=== PATIENT | female | born 1985 | race Caucasian/White ===

== ENCOUNTER 2017-11-17 15:52 | Emergency (ER) | payer OTHER ==
[~2017-11-17] VITALS: Ht 160 cm; Wt 54.0 kg
[2017-11-17 16:06] VITALS: BP 118/73; PULSE 94; RESP 18; TEMP 98.2; O2SAT 98
[2017-11-17] MEDS ORDERED: SODIUM CHLORID 0.9% 500 ML INJ 500 ML IV ONE (18:15)
[2017-11-17] MEDS ORDERED: SODIUM CHLORIDE 0.9% FLUSH 10 ML FLUSH IVF PRN ×2 (18:15)
[2017-11-17 18:34] LABS: AUTOMATED NEUTROPHIL # 8.6 TH/MM3 (1.8-7.7); BASOPHIL % 0.3 % (0.0-2.0); EOSINOPHIL # 0.3 TH/MM3 (0-0.4); EOSINOPHIL % 2.1 % (0.0-4.0); HEMATOCRIT 32.5 % (35.0-46.0); LYMPH % 21.7 % (9.0-44.0); LYMPHOCYTE # 2.8 TH/MM3 (1.0-4.8); MEAN CELL VOLUME 82.6 FL (80.0-100.0); MEAN CORPUSCULAR HEMOGLOBIN 27.9 PG (27.0-34.0); MEAN CORPUSCULAR HGB CONC 33.8 % (32.0-36.0); MONO % 8.1 % (0.0-8.0); NEUT % 67.8 % (16.0-70.0); PLATELET COUNT 296 TH/MM3 (150-450); RED BLOOD COUNT 3.93 MIL/MM3 (4.00-5.30); RED CELL DISTRIBUTION WIDTH 14.3 % (11.6-17.2); WHITE BLOOD COUNT 12.7 TH/MM3 (4.0-11.0)
[2017-11-17 18:41] VITALS: O2SAT 99
[2017-11-17 18:48] LABS: BICARBONATE 24.3 MEQ/L (21.0-32.0); CALCIUM 8.3 MG/DL (8.5-10.1); CREATININE 0.49 MG/DL (0.50-1.00)
[2017-11-17 18:52] LABS: INTERNATIONAL NORMALIZED RATIO 0.9 RATIO; PROTHROMBIN TIME - PATIENT 9.4 SEC (9.8-11.6)
--- NOTE | 2017-11-17 18:54 | PD ---
HPI Chief Complaint: Musculoskeletal Complaint Time Seen by Provider: 18:05 Travel History International Travel<30 days: No Contact w/Intl Traveler<30days: No Traveled to known affect area: No History of Present Illness HPI 32-year-old female, reportedly 22 weeks , presents emergency department with sudden onset left lower leg swelling and pain since lunchtime this morning. Patient states it just started while she was eating lunch. Patient states the pain has worsened and extended into the left thigh. Patient does not have a local [employer] as she just moved here from [place]. Patient states she called her [employer] in [place] who recommended she come in for evaluation for possible DVT. Patient denies cough, shortness of breath, abdominal pain, or vaginal symptoms. Patient states he feels movement. Pain is 8 out of 10 , and worse with trying to ambulate. She is allergic to amide type anesthetics. PFSH Past Medical History Medical History: Denies Significant Hx Tetanus Vaccination: Unknown Influenza Vaccination: No ?: Social History Alcohol Use: No Tobacco Use: No Substance Use: No Allergies-Medications (Allergen,Severity, Reaction): Coded Allergies: Anesthetics - Amide Type (Verified Allergy, Severe, Seizures, 11/17/17) Reported Meds & Prescriptions Reported Meds & Active Scripts Active No Active Prescriptions or Reported Medications Review of Systems Except as stated in HPI: all other systems reviewed are Neg General / Constitutional: No: Fever Eyes: No: Visual changes HENT: No: Headaches Cardiovascular: No: Chest Pain or Discomfort Respiratory: No: Shortness of Breath Gastrointestinal: No: Abdominal Pain Genitourinary: No: Dysuria Musculoskeletal: Positive: Myalgias, Cramping (See history of present illness) , Edema, No: Pain Skin: No Rash Neurologic: No: Weakness Psychiatric: No: Depression Endocrine: No: Polydipsia Hematologic/Lymphatic: No: Easy Bruising Physical Exam Narrative GENERAL: Patient appears in mild distress per SKIN: Warm and dry. Normal color. Normal turgor. No rash. No ecchymosis. No signs of trauma HEAD: Atraumatic. Normocephalic. EYES: Pupils equal and round. No scleral icterus. No injection or drainage. ENT: No nasal bleeding or discharge. Mucous membranes pink and moist. Pharynx is clear. NECK: Trachea midline. Supple nontender CARDIOVASCULAR: Regular rate and rhythm. RESPIRATORY: No accessory muscle use. Clear to auscultation. Breath sounds equal bilaterally. GASTROINTESTINAL: Abdomen soft, non-tender, nondistended. Hepatic and splenic margins not palpable. MUSCULOSKELETAL: Extremities without clubbing, cyanosis, or edema. No obvious deformities. Patient has positive Homans sign on the left. Left leg does appear slightly swollen. Neurovascular exam is normal. Capillary refill is brisk. NEUROLOGICAL: Awake and alert. No obvious cranial nerve deficits. Motor grossly within normal limits. Five out of 5 muscle strength in the arms and legs. Normal speech. PSYCHIATRIC: Appropriate mood and affect; insight and judgment normal. Data Data Last Documented VS Vital Signs Date Time Temp Pulse Resp B/P (MAP) Pulse Ox O2 Delivery O2 Flow Rate FiO2 11/17/17 18:41 99 Room Air 11/17/17 16:06 98.2 94 18 118/73 (88) Orders Orders Basic Metabolic Panel (Bmp) (11/17/17 18:08) Complete Blood Count With Diff (11/17/17 18:08) Prothrombin Time / Inr (Pt) (11/17/17 18:08) Act Partial Throm Time (Ptt) (11/17/17 18:08) Ecg Monitoring (11/17/17 18:08) Bilateral Bp Monitoring (11/17/17 18:08) Iv Access Insert/Monitor (11/17/17 18:08) Oximetry (11/17/17 18:08) Oxygen Administration (11/17/17 18:08) Sodium Chloride 0.9% Flush (Ns Flush) (11/17/17 18:15) Sodium Chlorid 0.9% 500 Ml Inj (Ns 500 M (11/17/17 18:15) Heart Tones (11/17/17 18:08) Sodium Chloride 0.9% Flush (Ns Flush) (11/17/17 18:15) Us Leg Venous Doppler (11/17/17 18:08) Labs Laboratory Tests Test 11/17/17 18:25 White Blood Count 12.7 TH/MM3 Red Blood Count 3.93 MIL/MM3 Hemoglobin 11.0 GM/DL Hematocrit 32.5 % Mean Corpuscular Volume 82.6 FL Mean Corpuscular Hemoglobin 27.9 PG Mean Corpuscular Hemoglobin Concent 33.8 % Red Cell Distribution Width 14.3 % Platelet Count 296 TH/MM3 Mean Platelet Volume 8.0 FL Neutrophils (%) (Auto) 67.8 % Lymphocytes (%) (Auto) 21.7 % Monocytes (%) (Auto) 8.1 % Eosinophils (%) (Auto) 2.1 % Basophils (%) (Auto) 0.3 % Neutrophils # (Auto) 8.6 TH/MM3 Lymphocytes # (Auto) 2.8 TH/MM3 Monocytes # (Auto) 1.0 TH/MM3 Eosinophils # (Auto) 0.3 TH/MM3 Basophils # (Auto) 0.0 TH/MM3 CBC Comment AUTO DIFF Prothrombin Time 9.4 SEC Prothromb Time International Ratio 0.9 RATIO Activated Partial Thromboplast Time 25.0 SEC Blood Urea Nitrogen 4 MG/DL Creatinine 0.49 MG/DL Random Glucose 86 MG/DL Calcium Level 8.3 MG/DL Sodium Level 140 MEQ/L Potassium Level 3.6 MEQ/L Chloride Level 107 MEQ/L Carbon Dioxide Level 24.3 MEQ/L Anion Gap 9 MEQ/L Estimat Glomerular Filtration Rate 145 ML/MIN MDM Medical Decision Making Medical Screen Exam Complete: Yes Emergency Medical Condition: Yes Differential Diagnosis Left lower leg pain. Left lower leg edema. Possible DVT and 22-week patient. Narrative Course Labs ordered including CBC, CMP, coagulation studies. IV access is obtained. Patient is given 500 mL's normal saline bolus. heart rate to be evaluated. Ultrasound of the left lower leg is ordered. CBC is unremarkable except for slight leukocytosis of 12.7. Coagulation studies shows a PT of 9.4 with an INR of 0.9 Chemistries unremarkable. 1900 hrs., ultrasound is pending. Care of the patient is assumed by Bryan Rodriguez PA-C. Final disposition will be determined by him. Scripts No Active Prescriptions or Reported Meds Condition: Stable Victor Hugo Xiao Nov 17, 2017 18:54
[2017-11-17 19:25] LABS: BANDS 6 % (0-6); LYMPHOCYTES 22 % (9-44); METAMYELOCYTES 1 % (0-1); MONOCYTES 4 % (0-8); MYELOCYTES 2 % (0-0); NEUTROPHIL # MANUAL DIFF 9.3 TH/MM3 (1.8-7.7); POLYS (SEG NEUTROPHILS) 64 % (16-70)
--- NOTE | 2017-11-17 19:52 | RADRPT ---
EXAM DATE/TIME: 11/17/2017 19:13 [facility] COMPARISON: No previous studies available for comparison. INDICATIONS : Left leg pain and swelling. MEDICAL HISTORY : None. SURGICAL HISTORY : None. ENCOUNTER: Initial ACUITY: 1 day PAIN SCORE: 2/10 LOCATION: Left leg. TECHNIQUE: Venous ultrasound of the leg was performed from the inguinal ligament to the proximal calf. Real-mi e, color Doppler and spectral tracing, compression and augmentation techniques were used. FINDINGS: There is normal compressibility of the deep venous system from the inguinal region to the proximal ca lf. No echogenic clot is seen in the lumen of the common femoral, femoral, popliteal, and posterior tibial veins. There is a normal response of the venous system to proximal and distal augmentation an d respiration. CONCLUSION: No evidence of deep venous thrombosis within the left lower extremity. Reinier Adams MD on November 17, 2017 at 19:49 Board Certified Radiologist. This report was verified electronically.
[2017-11-17] MEDS ORDERED: NITROFURANTOIN MONOHYD MACROCR 100 MG CAP PO SCH (20:30)
--- NOTE | 2017-11-17 21:49 | RADRPT ---
EXAM DATE/TIME: 11/17/2017 20:53 [facility] COMPARISON: No previous studies available for comparison. INDICATIONS : Numbness in right leg since this morning. Patient is 22 weeks . MEDICAL HISTORY : . SURGICAL HISTORY : None. ENCOUNTER: Initial ACUITY: 1 day PAIN SCORE: 0/10 LOCATION: Back. TECHNIQUE: Multiplanar multisequence MRI of the lumbar spine was performed without contrast. FINDINGS: The most caudal appearing lumbar vertebra is numbered as L5. Interuterine is noted. VERTEBRAE: Homogeneous signal. Normal alignment. CONUS: Normal level and configuration. T12-L1: The thecal sac has a normal diameter. No evidence of disc bulge or protrusion. The neural foramina are patent bilaterally. L1-L2: The thecal sac has a normal diameter. No evidence of disc bulge or protrusion. The neural foramina are patent bilaterally. L2-L3: The thecal sac has a normal diameter. No evidence of disc bulge or protrusion. The neural foramina are patent bilaterally. L3-L4: The thecal sac has a normal diameter. No evidence of disc bulge or protrusion. The neural foramina are patent bilaterally. L4-L5: The thecal sac has a normal diameter. No evidence of disc bulge or protrusion. The neural foramina are patent bilaterally. L5-S1: There is loss of disc height and signal at L5-S1 consistent with degenerative disc disease. Annular t ear is noted at this level. Minimal bilateral neuroforaminal narrowing is noted secondary to disc bul ge and mild facet joint hypertrophy. Tiny central disc bulge is noted at this level. No spinal stenos is is noted. CONCLUSION: Tiny central disc bulge at L5-S1 resulting in no spinal stenosis. Degenerative disc d isease L5-S1 with annular tear. Minimal bilateral foraminal narrowing at L5-S1. Interuterine pregnanc y. Reinier Adams MD on November 17, 2017 at 21:43 Board Certified Radiologist. This report was verified electronically.
--- NOTE | 2017-11-17 22:11 | PD ---
Physical Exam Narrative 32-year-old female was seen by my physician assistant community director to me. Patient has symptoms typical of neuritis left leg. Data Data Last Documented VS Vital Signs Date Time Temp Pulse Resp B/P (MAP) Pulse Ox O2 Delivery O2 Flow Rate FiO2 11/17/17 18:41 99 Room Air 11/17/17 16:06 98.2 94 18 118/73 (88) Orders Orders Basic Metabolic Panel (Bmp) (11/17/17 18:08) Complete Blood Count With Diff (11/17/17 18:08) Prothrombin Time / Inr (Pt) (11/17/17 18:08) Act Partial Throm Time (Ptt) (11/17/17 18:08) Ecg Monitoring (11/17/17 18:08) Bilateral Bp Monitoring (11/17/17 18:08) Iv Access Insert/Monitor (11/17/17 18:08) Oximetry (11/17/17 18:08) Oxygen Administration (11/17/17 18:08) Sodium Chloride 0.9% Flush (Ns Flush) (11/17/17 18:15) Sodium Chlorid 0.9% 500 Ml Inj (Ns 500 M (11/17/17 18:15) Heart Tones (11/17/17 18:08) Sodium Chloride 0.9% Flush (Ns Flush) (11/17/17 18:15) Us Leg Venous Doppler (11/17/17 18:08) Mri L Spine W/O Contrast (11/17/17 ) Nitrofurantoin Monohyd Macrocr (Macrobid (11/17/17 20:30) Consult Neurology (11/17/17 ) (Hub Use Only)Inp Phy Cons/Ref (11/18/17 ) Labs Laboratory Tests Test 11/17/17 18:25 White Blood Count 12.7 TH/MM3 Red Blood Count 3.93 MIL/MM3 Hemoglobin 11.0 GM/DL Hematocrit 32.5 % Mean Corpuscular Volume 82.6 FL Mean Corpuscular Hemoglobin 27.9 PG Mean Corpuscular Hemoglobin Concent 33.8 % Red Cell Distribution Width 14.3 % Platelet Count 296 TH/MM3 Mean Platelet Volume 8.0 FL Neutrophils (%) (Auto) 67.8 % Lymphocytes (%) (Auto) 21.7 % Monocytes (%) (Auto) 8.1 % Eosinophils (%) (Auto) 2.1 % Basophils (%) (Auto) 0.3 % Neutrophils # (Auto) 8.6 TH/MM3 Lymphocytes # (Auto) 2.8 TH/MM3 Monocytes # (Auto) 1.0 TH/MM3 Eosinophils # (Auto) 0.3 TH/MM3 Basophils # (Auto) 0.0 TH/MM3 CBC Comment AUTO DIFF Differential Total Cells Counted 100 Neutrophils % (Manual) 64 % Band Neutrophils % 6 % Lymphocytes % 22 % Monocytes % 4 % Eosinophils % 1 % Neutrophils # (Manual) 9.3 TH/MM3 Metamyelocytes 1 % Myelocytes 2 % Differential Comment FINAL DIFF MANUAL Platelet Estimate NORMAL Platelet Morphology Comment NORMAL Red Cell Morphology Comment NORMAL Prothrombin Time 9.4 SEC Prothromb Time International Ratio 0.9 RATIO Activated Partial Thromboplast Time 25.0 SEC Blood Urea Nitrogen 4 MG/DL Creatinine 0.49 MG/DL Random Glucose 86 MG/DL Calcium Level 8.3 MG/DL Sodium Level 140 MEQ/L Potassium Level 3.6 MEQ/L Chloride Level 107 MEQ/L Carbon Dioxide Level 24.3 MEQ/L Anion Gap 9 MEQ/L Estimat Glomerular Filtration Rate 145 ML/MIN MDM Supervised Visit with LOIDA: Yes Narrative Course 32-year-old female, 22 weeks , with diagnosis of left leg neuritis. I spoke with Dr. Salazar, neurologist. Advise MRI of the lumbar spine and observation overnight and he was see patient in a.m. I spoke with the ED OB, who advised me to call medical service for admission. I spoke with Dr. Jama who stated that he would not admit any female above 16 weeks . I spoke with ED OB again and was advised that medical service should admit the patient. I spoke to Dr. Jama again and he advised me that he would not admit the patient to the medical service because patient is above 16 week . Patient will be observed in the ED till morning. Diagnosis Primary Impression: Neuritis of left lower extremity Scripts No Active Prescriptions or Reported Meds Condition: Stable Mike Ward MD Nov 17, 2017 22:11
[2017-11-18 07:29] VITALS: BP 105/65; PULSE 93; RESP 18; TEMP 98.6; O2SAT 98
--- NOTE | 2017-11-18 10:09 | PD ---
Physical Exam Date Seen by Provider: Nov 18, 2017 Time Seen by Provider: 10:06 Narrative 32-year-old female with 22 week , previously seen by myself and Dr. Ward last evening, is still here at 10:00 in the morning, awaiting neurology consult. MRI was performed, and reviewed. Patient was discussed with Dr. Elizondo, and neurologically the patient appears intact and is limited as terms of treatment due to her current . She felt the patient would benefit from Tylenol and physical therapy. Data Data Last Documented VS Vital Signs Date Time Temp Pulse Resp B/P (MAP) Pulse Ox O2 Delivery O2 Flow Rate FiO2 11/18/17 07:29 98.6 93 18 105/65 (78) 98 11/17/17 18:41 Room Air Orders Orders Basic Metabolic Panel (Bmp) (11/17/17 18:08) Complete Blood Count With Diff (11/17/17 18:08) Prothrombin Time / Inr (Pt) (11/17/17 18:08) Act Partial Throm Time (Ptt) (11/17/17 18:08) Ecg Monitoring (11/17/17 18:08) Bilateral Bp Monitoring (11/17/17 18:08) Iv Access Insert/Monitor (11/17/17 18:08) Oximetry (11/17/17 18:08) Oxygen Administration (11/17/17 18:08) Sodium Chloride 0.9% Flush (Ns Flush) (11/17/17 18:15) Sodium Chlorid 0.9% 500 Ml Inj (Ns 500 M (11/17/17 18:15) Heart Tones (11/17/17 18:08) Sodium Chloride 0.9% Flush (Ns Flush) (11/17/17 18:15) Us Leg Venous Doppler (11/17/17 18:08) Mri L Spine W/O Contrast (11/17/17 ) Nitrofurantoin Monohyd Macrocr (Macrobid (11/17/17 20:30) Consult Neurology (11/17/17 ) (Hub Use Only)Inp Phy Cons/Ref (11/18/17 ) Diet Regular Basic (11/18/17 Breakfast) Labs Laboratory Tests Test 11/17/17 18:25 White Blood Count 12.7 TH/MM3 Red Blood Count 3.93 MIL/MM3 Hemoglobin 11.0 GM/DL Hematocrit 32.5 % Mean Corpuscular Volume 82.6 FL Mean Corpuscular Hemoglobin 27.9 PG Mean Corpuscular Hemoglobin Concent 33.8 % Red Cell Distribution Width 14.3 % Platelet Count 296 TH/MM3 Mean Platelet Volume 8.0 FL Neutrophils (%) (Auto) 67.8 % Lymphocytes (%) (Auto) 21.7 % Monocytes (%) (Auto) 8.1 % Eosinophils (%) (Auto) 2.1 % Basophils (%) (Auto) 0.3 % Neutrophils # (Auto) 8.6 TH/MM3 Lymphocytes # (Auto) 2.8 TH/MM3 Monocytes # (Auto) 1.0 TH/MM3 Eosinophils # (Auto) 0.3 TH/MM3 Basophils # (Auto) 0.0 TH/MM3 CBC Comment AUTO DIFF Differential Total Cells Counted 100 Neutrophils % (Manual) 64 % Band Neutrophils % 6 % Lymphocytes % 22 % Monocytes % 4 % Eosinophils % 1 % Neutrophils # (Manual) 9.3 TH/MM3 Metamyelocytes 1 % Myelocytes 2 % Differential Comment FINAL DIFF MANUAL Platelet Estimate NORMAL Platelet Morphology Comment NORMAL Red Cell Morphology Comment NORMAL Prothrombin Time 9.4 SEC Prothromb Time International Ratio 0.9 RATIO Activated Partial Thromboplast Time 25.0 SEC Blood Urea Nitrogen 4 MG/DL Creatinine 0.49 MG/DL Random Glucose 86 MG/DL Calcium Level 8.3 MG/DL Sodium Level 140 MEQ/L Potassium Level 3.6 MEQ/L Chloride Level 107 MEQ/L Carbon Dioxide Level 24.3 MEQ/L Anion Gap 9 MEQ/L Estimat Glomerular Filtration Rate 145 ML/MIN [facility] Medical Record Reviewed: Yes Supervised Visit with LOIDA: Yes Narrative Course 32-year-old female with 22 week , previously seen by myself and Dr. Ward last evening, is still here at 10:00 in the morning, awaiting neurology consult. MRI was performed, and reviewed. Patient was discussed with Dr. Elizondo, and neurologically the patient appears intact and is limited as terms of treatment due to her current . She felt the patient would benefit from Tylenol and physical therapy. Patient is reassessed and found to be improved. Patient will be sent home with exercises for her lower back as well as recommendations for heat, ice, and Tylenol. Patient to follow-up with her [employer] SUPERVISOR locally on 24 November, which has now been scheduled. Patient should return to emergency department if symptoms worsen as discussed. Diagnosis Primary Impression: Neuritis of left lower extremity Referrals: [facility] Patient Instructions: Acute Low Back Pain (ED), General Instructions, Lower Back Exercises (ED), Lumbar Radiculopathy (ED) Additional Instruction: Patient is reassessed and found to be improved. Patient will be sent home with exercises for her lower back as well as recommendations for heat, ice, and Tylenol. Patient to follow-up with her [employer]PER[employer] locally on 24 November, which has now been scheduled. Patient should return to emergency department if symptoms worsen as discussed. Med/Other Pt SpecificInfo: No Meds Exist/No RX given Scripts No Active Prescriptions or Reported Meds Disposition: 01 DISCHARGE HOME Condition: Stable Victor Hugo Xiao Nov 18, 2017 10:09
== END 2017-11-18 10:41 | disposition home or self-care (01) ==
LOC: NEPD 15:52
DX: O99.89 Other specified diseases and conditions complicating pregnancy, childbirth and the puerperium (principal); M79.2 Neuralgia and neuritis, unspecified; Z3A.22 22 weeks gestation of pregnancy
CPT/HCPCS: 72148; 80048; 85007; 85027; 85610; 85730; 93971; 96360; 99284; J7040

== ENCOUNTER → 2018-02-04 | Emergency (ER) | payer OTHER ==
[~2018-02-04] MED LIST: FERR325T18 PO; LACTATED RINGER'S 1000 ML INJ 1,000 ML IV ONE; NIFEdipine 10 MG CAP PO ONE; ONDANSETRON ODT 4 MG TAB PO ONE
--- NOTE | 2018-02-04 08:38 | HHI.HP ---
HPI Chief Complaint r/o PTL Travel History International Travel<30 Days: No Contact w/Intl Traveler<30Days: No Known Affected Area: No History of Present Illness HPI 32 yo G1 at 34w0d by L/10 (DUDLEY 03/18/18) here for triage to r/o PTL, I saw her in the office yesterday with complaints of pressure, contractions. She was found to be 1 cm, thick, high, soft and posterior, negative fern, and was lena rarely with a reactive NST. Her FFN returned positive and I called and discussed the results with her, plan was to stay at home and see if her contractions worsen, they persisted throughout the night and have increased in duration but not intensity this morning, is having some lower abdominal pressure. Is having some dark brown spotting but no heavy bleeding. Denies fever or chills, endorses movement. She is having some nausea, no emesis that began this morning. History Past Medical History Narrative Medical Denies Obstetric History Obstetric History G1 Past Surgical History Narrative Surgical None Family History Narrative Family History No pertinent positives Social History Alcohol Use: No Tobacco Use: No Substance Abuse: No Allergies-Medications (Allergen,Severity, Reaction): Coded Allergies: Anesthetics - Amide Type (Verified Allergy, Severe, Seizures, 11/17/17) Home Meds Active Scripts Ferrous Sulfate (Ferrous Sulfate) 325 Mg (65 Mg Iron) Tablet, 325 MG PO DAILY for Nutritional Supplement, #60 TAB 1 Refill Prov:Wilmar Palumbo MD 02/04/18 Narrative Medication vitamins and iron Review of Systems General / Constitutional: No: Fever, Weight Gain, Chills, Other Eyes: No: Diploplia, Blurred Vision, Visual changes, Pain, Photophobia HENT: No: Headaches, Vertigo, Lightheadedness Cardiovascular: No: Irregular Rhythm, Chest Pain or Discomfort, Palpitations, Tachycardia, Syncope, Varicosities, Edema, Cyanosis Respiratory: No: Cough, Short of Breath, Other Gastrointestinal: No: Nausea, Vomiting, Diarrhea Genitourinary: No: Decreased Urinary Output, Oliguria Musculoskeletal: No: Limited ROM, Weakness, Cramping, Edema, Pain Skin: No Rash, No Itching, No Dryness, No Lumps, No Change in Pigmentation, No Change in Nails, No Alopecia, No Lesions Neurologic: No: Weakness, Dizziness, Syncope, Focal Abnormalities, Coordination Problem, Headache, Slurred Speech, Seizures Psychiatric: No: Depression, Suicidal Ideations, Homicidal Ideation Endocrine: No: Heat Intolerance, Cold Intolerance, Polydipsia, Polyuria, Other Physical Exam Narrative Vitals: Temperature 98.1, respiratory rate 20, pulse 98, blood pressure 124/71. GENERAL: Well-nourished, well-developed patient. SKIN: Warm and dry. HEAD: Normocephalic and atraumatic. EYES: No scleral icterus. No injection or drainage. ENT: No nasal drainage noted. Mucous membranes pink. Airway patent. NECK: Supple, trachea midline. No JVD. CARDIOVASCULAR: Regular rate and rhythm without murmurs, gallops, or rubs. RESPIRATORY: Breath sounds equal bilaterally. No accessory muscle use. ABDOMEN/GI: Abdomen soft, non-tender, bowel sounds present, no rebound, no guarding Gravid GENITOURINARY: Normal external female genitalia, cervix 1 cm, thick, high, medium, posterior FHT's: Baseline 130s, moderate variability, accelerations present, no decelerations TOCO: Contractions every 3 minutes EXTREMITIES: No cyanosis or edema. BACK: Nontender without obvious deformity. No CVA tenderness. NEUROLOGICAL: Awake and alert. Motor and sensory grossly within normal limits. Normal speech. Caprini VTE Risk Assessment Caprini VTE Risk Assessment: No/Low Risk (score <= 1) Caprini Risk Assessment Model Point Value = 1 Point Value = 2 Point Value = 3 Point Value = 5 Age 41-60 Minor surgery BMI > 25 kg/m2 Swollen legs Varicose veins or History of unexplained or recurrent spontaneous Oral contraceptives or hormone replacement Sepsis (< 1 month) Serious lung disease, including pneumonia (< 1 month) Abnormal pulmonary function Acute myocardial infarction Congestive heart failure (< 1 month) History of inflammatory bowel disease Medical patient at bed rest Age 61-74 Arthroscopic surgery Major open surgery (> 45 min) Laparoscopic surgery (> 45 min) Malignancy Confined to bed (> 72 hours) Immobilizing plaster cast Central venous access Age >= 75 History of VTE Family history of VTE Factor V Leiden Prothrombin [id number] Lupus anticoagulant Anticardiolipin antibodies Elevated serum homocysteine Heparin-induced thrombocytopenia Other congenital or acquired thrombophilia Stroke (< 1 month) Elective arthroplasty Hip, pelvis, or leg fracture Acute spinal cord injury (< 1 month) Prophylaxis Regimen Total Risk Factor Score Risk Level Prophylaxis Regimen 0-1 Low Early ambulation 2 Moderate Order ONE of the following: *Sequential Compression Device (SCD) *Heparin 5000 units SQ BID 3-4 Higher Order ONE of the following medications: *Heparin 5000 units SQ TID *Enoxaparin/Lovenox 40 mg SQ daily (WT < 150 kg, CrCl > 30 mL/min) *Enoxaparin/Lovenox 30 mg SQ daily (WT < 150 kg, CrCl > 10-29 mL/min) *Enoxaparin/Lovenox 30 mg SQ BID (WT < 150 kg, CrCl > 30 mL/min) AND/OR *Sequential Compression Device (SCD) 5 or more Highest Order ONE of the following medications: *Heparin 5000 units SQ TID (Preferred with Epidurals) *Enoxaparin/Lovenox 40 mg SQ daily (WT < 150 kg, CrCl > 30 mL/min) *Enoxaparin/Lovenox 30 mg SQ daily (WT < 150 kg, CrCl > 10-29 mL/min) *Enoxaparin/Lovenox 30 mg SQ BID (WT < 150 kg, CrCl > 30 mL/min) AND *Sequential Compression Device (SCD) Assessment/Plan Assessment and Plan 32 yo G1 at 34w0d by L/10 (DUDLEY 03/18/18) here for r/o PTL. 1. IUP: cat 1 tracing / reactive NST - male fetus 2. Ctx / rule out PTL: Cervix unchanged from yesterday in the office, discussed that she may have some contractions or uterine irritability but unlikely in labor despite positive FFN, however this predicts risk of labor in the next week and suggested to be mindful of any worsening of her symptoms at home. Discussed options of discharge home with p.o. hydration and return to the office on Tuesday, or IV hydration, treatment of her nausea and empiric treatment with p.o. Procardia to help with possible uterine irritability. Patient desires the latter, will collect UA in addition and follow-up after interventions 3. Anemia: Hemoglobin 10 at her 24 week labs, sent with prescription for ferrous sulfate 325mg daily due to her inability to find [id number] supplements. Addendum: 10:18 AM: reevaluated patient within 30 minutes after receiving treatment, she feels much better no longer having pressure or abdominal pain, contractions have subsided on toco and are rare at this point. Did not recheck cervix given lack of change originally and now asymptomatic. Provided patient reassurance, discussed pre-term labor precautions, patient to follow-up in the office on Tuesday. Urinalysis collected and pending, will follow up and call patient if concerning for UTI. Wilmar Palumbo MD February 04, 2018 08:38
[2018-02-04 10:18] LABS: BILIRUBIN, URINE NEGATIVE (NEG); BLOOD, URINE SMALL (NEG); GLUCOSE,URINE NEG (NEG); KETONE, URINE NEG (NEG); URINE COLOR YELLOW (YELLW/STRAW)
[2018-02-04 10:19] LABS: NITRITE,URINE NEG (NEG); URINE LEUKOCYTE ESTERASE TRACE (NEG)
[2018-02-04 10:20] LABS: BACTERIA, URINE OCC /hpf; HYALINE CAST, URINE 1 /lpf (RARE); SQUAMOUS EPITHELIAL CELL URINE 6 /hpf (0-5); TRANSITIONAL EPI CELLS, URINE <1 /hpf
== END | disposition home or self-care (01) ==
LOC: HOBED 08:25
DX: O26.893 Other specified pregnancy related conditions, third trimester (principal); R11.0 Nausea; O62.9 Abnormality of forces of labor, unspecified; O26.853 Spotting complicating pregnancy, third trimester; O99.013 Anemia complicating pregnancy, third trimester; Z3A.34 34 weeks gestation of pregnancy
CPT/HCPCS: 59025; 81001; 99284; J7120

== ENCOUNTER 2018-03-15 00:08 | Inpatient (IN) | END 2018-03-18 14:58 | disposition home or self-care (01) | LOC: H1EA 01:28 | PROVIDERS: ADMIT Obstetrics & Gynecology; ATTEND Obstetrics & Gynecology ==